=== PATIENT | male | born 1950 | race Caucasian/White ===

== ENCOUNTER 2018-09-10 07:24 | Day surgery (SDC) | payer OTHER ==
[2018-09-09 12:43] VITALS: BMI 27.1
[2018-09-10] MEDS ORDERED: PROPOFOL 20 ML ONE ×2 (07:30)
[2018-09-10] MEDS ORDERED: LIDOCAINE HCL/PF 2% SDV 5ML VIAL ONE (07:43)
[2018-09-10 09:04] VITALS: TEMP 97.6
[2018-09-10 09:23] VITALS: BP 160/82; PULSE 54
--- NOTE | 2018-09-11 10:05 | PATH ---
Surgical Pathology Report Patient Name: VISHNU BESS [facility]. Rec. #: [id number] /Age/Gender: 1950 (Age: 67) / M Account: [id number] Location: [facility] Taken: 09/10/2018 Received: 09/10/2018 Reported: 09/11/2018 Physicians: Wilberto Barriga M.D. Specimen(s) Received LEFT COLON Clinical History Family history of colon cancer Postoperative diagnosis: Polyp Final Diagnosis COLON, LEFT, BIOPSY: TUBULAR ADENOMA. Electronically Signed Maye Ellison M.D. Gross Description Received in formalin, labeled "left colon" is a hopkins, irregular portion of soft tissue measuring 0.5 cm. in greatest dimension. The specimen is submitted in toto in one cassette. 09/10/201809/10/2018
== END 2018-09-10 09:24 | disposition home or self-care (01) ==
LOC: FASU-ENDO 07:24
PROVIDERS: ATTEND Internal Medicine Gastroenterology
PROC: 0DBM8ZX Excision of Descending Colon, Via Natural or Artificial Opening Endoscopic, Diagnostic (ICD-10-PCS; principal; 2018-09-10 08:30)
DX: Z12.11 Encounter for screening for malignant neoplasm of colon (principal); Z80.0 Family history of malignant neoplasm of digestive organs; D12.4 Benign neoplasm of descending colon; K57.30 Diverticulosis of large intestine without perforation or abscess without bleeding
CPT/HCPCS: 88305-TC